=== PATIENT | male | born 1960 | race Caucasian/White ===

== ENCOUNTER 2017-03-03 22:53 | Emergency (ER) | payer OTHER ==
[~2017-03-03] VITALS: Ht 175.3 cm; Wt 100.0 kg
[2017-03-03 22:57] VITALS: BP 177/79; PULSE 67; RESP 16; TEMP 98.4; O2SAT 98
[2017-03-04] MEDS ORDERED: LIDOCAINE HCL 1% 50 ML VIAL INFIL ONE (00:15)
[2017-03-04] MEDS ORDERED: TETANUS/DIPHTHERIA TOXOID ADULT 0.5 ML VIAL IM ONE (00:15)
--- NOTE | 2017-03-04 00:39 | PD ---
HPI Chief Complaint: Laceration/Skin Injury Time Seen by Provider: 00:12 Travel History International Travel<30 days: No Contact w/Intl Traveler<30days: No Traveled to known affect area: No History of Present Illness HPI Patient is a 56-year-old male presenting to emergency for evaluation of laceration to his right thumb. Patient was cutting a sandwich and cut his finger. He reports his pain is a 1 out of 10. He is uncertain when his last tetanus vaccine was. He denies any numbness, tingling, weakness. He has no other complaints at this time. [facility] Past Medical History Medical History: Denies Significant Hx Tetanus Vaccination: Unknown Social History Alcohol Use: Yes (3-4 DRINKS DAILY) Tobacco Use: Yes Substance Use: No Allergies-Medications (Allergen,Severity, Reaction): Coded Allergies: No Known Allergies (Unverified , 03/03/17) Reported Meds & Prescriptions Reported Meds & Active Scripts Active No Active Prescriptions or Reported Medications Review of Systems Except as stated in HPI: all other systems reviewed are Neg Skin: Positive Other (laceration) Physical Exam Narrative GENERAL: Well-developed, well-nourished, alert male. Resting comfortably in acute distress. SKIN: Warm and dry. 1 cm skin avulsion to the medial aspect of the right thumb distal to the DIP joint. HEAD: Normocephalic. EYES: No scleral icterus. No injection or drainage. NECK: Supple, trachea midline. No JVD or lymphadenopathy. CARDIOVASCULAR: Regular rate and rhythm without murmurs, gallops, or rubs. RESPIRATORY: Breath sounds equal bilaterally. No accessory muscle use. GASTROINTESTINAL: Abdomen soft, non-tender, nondistended. MUSCULOSKELETAL: No cyanosis, or edema. BACK: Nontender without obvious deformity. No CVA tenderness. Data Data Last Documented VS Vital Signs Date Time Temp Pulse Resp B/P (MAP) Pulse Ox O2 Delivery O2 Flow Rate FiO2 03/03/17 22:57 98.4 67 16 177/79 (111) 98 Room Air Orders Orders Lidocaine 1% Inj (50 Ml) (Xylocaine 1% I (03/04/17 00:15) Tetanus/Diphtheria Tox Adult (Tetanus/Di (03/04/17 00:15) Ibuprofen (Motrin) (03/04/17 00:45) MDM Medical Decision Making Medical Screen Exam Complete: Yes Emergency Medical Condition: Yes Interpretation(s) Vital Signs Date Time Temp Pulse Resp B/P (MAP) Pulse Ox O2 Delivery O2 Flow Rate FiO2 03/03/17 22:57 98.4 67 16 177/79 (111) 98 Room Air Differential Diagnosis Avulsion versus laceration versus abrasion versus other Narrative Course Patient presented for evaluation of laceration to his thumb that he sustained prior to arrival. His tetanus vaccine was updated in the emergency department, patient is neurovascularly intact. Please see procedure report laceration repair. Patient was placed in a finger splint after he laceration was repaired. He was given wound care instructions. Patient was advised that the stitches are needed, approximate 7-10 days minimum. He was given verbal instructions regarding signs and symptoms of infection. He was encouraged follow-up with his primary doctor return to emergency department immediately for any new or worsening symptoms. Patient was understanding of instructions. Patient is stable for discharge. Procedures Procedure Narrative LACERATION LOCATION: Right thumb LENGTH: 1 cm NUMBER OF STITCHES/SUE: 3 stitches REPAIR: The area of the laceration was prepped with Betadine and sterilely draped. The laceration was infiltrated with 1% lidocaine. The wound was copiously irrigated and explored without evidence of foreign body, tendon injury or neurovascular injury. The wound was closed using 5-0 Ethilon This was a 1 layer repair. A sterile dressing was applied. The patient was advised to keep the dressing clean and dry. Patient tolerated the procedure well. Diagnosis Primary Impression: Laceration of finger Qualified Codes: S61.011A - Laceration without foreign body of right thumb without damage to nail, initial encounter Referrals: Primary Care Physician Patient Instructions: Care For Your Stitches (ED), Finger Laceration (ED), General Instructions Additional Instructions: Follow up with your primary doctor in 7-10 days to have stitches removed. Return to Emergency Department for any new or worsening symptoms Keep stitches clean and dry, apply topical antibiotic ointment and bandaid. Med/Other Pt SpecificInfo: Prescription(s) given Scripts Ibuprofen (Ibuprofen) 800 Mg Tab 800 MG PO Q6HR Y for PAIN, #40 TAB 0 Refills Prov: Rosamaria Adames 03/04/17 Disposition: 01 DISCHARGE HOME Condition: Stable Rosamaria Adames Mar 04, 2017 00:39
[2017-03-04] MEDS ORDERED: IBUPROFEN 800 MG TAB PO ONE (00:45)
[2017-03-04] MEDS ORDERED: IBUP800T23 PO (00:47)
== END 2017-03-04 01:00 | disposition home or self-care (01) ==
LOC: NEPD 22:53
DX: S61.011A Laceration without foreign body of right thumb without damage to nail, initial encounter (principal); W26.0XXA Contact with knife, initial encounter; Y93.G3 Activity, cooking and baking; Y92.000 Kitchen of unspecified non-institutional (private) residence as the place of occurrence of the external cause; Z23 Encounter for immunization; Z72.0 Tobacco use
CPT/HCPCS: 12001; 90471; 90714